=== PATIENT | female | born 1980 | race African-American/Black ===

== ENCOUNTER 2019-01-11 17:46 | Emergency (ER) | payer OTHER, SELFPAY ==
[2019-01-11] MEDS ORDERED: TETANUS & DIPHTHERIA TOX,ADULT 0.5 ML VIAL ONE (18:09)
--- NOTE | 2019-01-11 18:35 | RAD REPORT ---
EXAM DESCRIPTION: RAD - Ankle Left 3 View - 01/11/2019 6:21 pm CLINICAL HISTORY: DOG BITE COMPARISON: No comparisons FINDINGS: No fracture, dislocation or radiopaque foreign body is detected.
[2019-01-11] MEDS ORDERED: AMOX/K CLAV 875 MG TAB ONE (18:36)
--- NOTE | 2019-01-11 19:44 | EDPHYS ---
Physician Documentation [facility] Name: Karla Ross Age: 38 yrs Sex: Female : 1980 Arrival Date: 01/11/2019 Time: 17:51 Bed 20 Private MD: ED Physician Shai Bledsoe HPI: 01/11 18:06 This 38 yrs old Black Female presents to ER via Ambulatory with complaints of Dog Bite, rn Ankle Injury. 18:06 The patient was bitten on the right leg, by a dog, while in the garden or yard, rn outdoors. Onset: The symptoms/episode began/occurred just prior to arrival. Animal information: Animal's vaccinations are not up to date. The animal is known and can be quarantined, Animal control has been notified. Secondary to the bite the patient reports right leg with puncture wounds. Severity of symptoms: At their worst the symptoms were mild, in the emergency department the symptoms are unchanged. The patient has not experienced similar symptoms in the past. 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 Patient not UTD with tetanus. Reports jumped into truck and rolled left ankle, able to walk on it but hurts. No other injuries. . Historical: - Allergies: 17:57 No Known Allergies; la1 - PMHx: 17:57 Hypertension; la1 - Immunization history:: Adult Immunizations up to date. - Social history:: Smoking status: Patient/guardian denies using tobacco. - Ebola Screening: : No symptoms or risks identified at this time. - Family history:: not pertinent. - Hospitalizations: : No recent hospitalization is reported. ROS: 18:06 Constitutional: Negative for fever, chills, and weight loss, MS/Extremity: + bite rn wounds and left ankle injury Exam: 18:06 Constitutional: This is a well developed, well nourished patient who is awake, alert, rn and in no acute distress. Ambulatory to room without assistance or difficulty. MS/ Extremity: Pulses equal, no cyanosis. Neurovascular intact. Full, normal range of motion. Equal circumference. 2 separate bite torres, each with 2 small subcentimeter puncture wounds to RLE. one on distal anterior thigh and another [id number] space, no palpable foreign bodies, superficial, and mild venous bleeding. Left ankle without bony tenderness of fibula/tibia, mild tenderness just distal to ankle. Vital Signs: 17:57 BP 124 / 87; Pulse 86; Resp 16; Temp 97.4; Pulse Ox 100% on R/A; Weight 83.91 kg; la1 Height 5 ft. 5 in. (165.10 cm); 17:57 Body Mass Index 30.79 (83.91 kg, 165.10 cm) la1 MDM: 17:58 Patient medically screened. rn 18:25 Differential diagnosis: superficial dog bites, ankle sprain. Data reviewed: vital rn signs, nurses notes, radiologic studies, plain films, and as a result, I will discharge patient. Sepsis 6 hour Focused Exam:. Counseling: I had a detailed discussion with the patient and/or guardian regarding: the historical points, exam findings, and any diagnostic results supporting the discharge/admit diagnosis, radiology results, the need for outpatient follow up, to return to the emergency department if symptoms worsen or persist or if there are any questions or concerns that arise at home. Special discussion: I discussed with the patient/guardian in detail that at this point there is no indication for admission to the hospital. It is understood, however, that if the symptoms persist or worsen the patient needs to return immediately for re-evaluation. Based on the history and exam findings, there is no indication for further emergent testing or inpatient evaluation. I discussed with the patient/guardian the need to see the primary care provider for further evaluation of the symptoms. Animal control. ED course: Dogs are owned and animal control notified. No lacerations, + superficial dog bites that do not need to be closed at this time, cleaned with hibiclenz and dressed, tetanus updated. Xray left ankle negative for acute fracture/dislocation. Will dc home with return precautions. No emergent indication for rabies treatment given not stray dogs, both dogs attacked, and known location with animal control involved. . 01/11 18:06 Order name: Wound Care; Complete Time: 18:07 rn Administered Medications: 18:16 Drug: Tetanus-Diphtheria Toxoid Adult 0.5 ml {Client Success Manager: [employer]. Exp: sg 08/26/2020. Lot #: [id number]. } Route: IM; Site: right deltoid; 18:37 Drug: Augmentin 875 mg Route: PO; sg Disposition: 01/11/19 18:28 Discharged to Home. Impression: Sprain of unspecified ligament of left ankle, Bitten by dog. - Condition is Stable. - Discharge Instructions: Ankle Sprain, Animal Bite. - Prescriptions for Augmentin 875- 125 mg Oral Tablet - take 1 tablet by ORAL route every 12 hours for 10 days; 20 tablet. - Work release form, Medication Reconciliation Form, Thank You Letter, Antibiotic Education, Prescription Opioid Use form. - Follow up: Private Physician; When: As needed; Reason: Recheck today's complaints, Re-evaluation by your physician. - Problem is new. - Symptoms have improved. Signatures: Ronny Sterling RN RN sg Nieto, Roman, MD MD rn Attema, Lee, RN RN la1 Corrections: (The following items were deleted from the chart) 18:43 18:28 01/11/2019 18:28 Discharged to Home. Impression: Sprain of unspecified ligament sg of left ankle; Bitten by dog. Condition is Stable. Forms are Medication Reconciliation Form, Thank You Letter, Antibiotic Education, Prescription Opioid Use. Follow up: Private Physician; When: As needed; Reason: Recheck today's complaints, Re-evaluation by your physician. Problem is new. Symptoms have improved. rn
--- NOTE | 2019-01-11 19:46 | ER ---
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 Animal control were on scene and the dogs were not UTD on their vaccinations. Transition of care: patient was not received from another setting of care. Onset of symptoms was January 11, 2019. Risk Assessment: Do you want to hurt yourself or someone else? Patient reports no desire to harm self or others. Initial Sepsis Screen: Does the patient meet any 2 criteria? No. Patient's initial sepsis screen is negative. Does the patient have a suspected source of infection? No. Patient's initial sepsis screen is negative. Care prior to arrival: None. 17:56 Method Of Arrival: Ambulatory la1 17:56 Acuity: [place] 4 la1 Triage Assessment: 18:44 Bite description: bite by a dog, animal information: vaccination(s) is not up to date. sg Historical: - Allergies: 17:57 No Known Allergies; la1 - PMHx: 17:57 Hypertension; la1 - Immunization history:: Adult Immunizations up to date. - Social history:: Smoking status: Patient/guardian denies using tobacco. - Ebola Screening: : No symptoms or risks identified at this time. - Family history:: not pertinent. - Hospitalizations: : No recent hospitalization is reported. Screenin:00 Abuse screen: Denies threats or abuse. Denies injuries from another. Nutritional sg screening: No deficits noted. Tuberculosis screening: No symptoms or risk factors identified. Never had TB. Fall Risk None identified. Assessment: 18:06 Reassessment: Patient appears in no apparent distress at this time. wound care ordered. sg 18:06 General: Appears in no apparent distress. well groomed, well developed, well nourished, sg Behavior is calm, cooperative, appropriate for age. Pain: Complains of pain in right quadriceps, right hogan and left lateral ankle Quality of pain is described as aching. Neuro: Level of Consciousness is awake, alert, obeys commands, Oriented to person, place, time, situation, Exchange Underwriting Consultant are equal bilaterally Speech is normal, Facial symmetry appears normal. Cardiovascular: Capillary refill is brisk in bilateral fingers Patient's skin is warm and dry. Chest pain is denied. Respiratory: Airway is patent Respiratory effort is even, unlabored, Respiratory pattern is regular, symmetrical. GI: Abdomen is round non-distended, Reports normal bowel habits, tolerance of fluids, tolerance of food. : No signs and/or symptoms were reported regarding the genitourinary system. EENT: No signs and/or symptoms were reported regarding the EENT system. Derm: Skin is healthy with good turgor, Skin is dry, Skin is normal, Wound noted right quadriceps and right hogan. Musculoskeletal: Circulation, motion, and sensation intact. Range of motion: intact in all extremities. Injury Description: Bite sustained to right quadriceps and right hogan caused by a dog, is from animal, was sustained 30-60 minutes ago. 18:45 Reassessment: Patient appears in no apparent distress at this time. pt reports the sg lab animal technician has been notified as well as appropriate police department. Vital Signs: 17:57 BP 124 / 87; Pulse 86; Resp 16; Temp 97.4; Pulse Ox 100% on R/A; Weight 83.91 kg; la1 Height 5 ft. 5 in. (165.10 cm); 17:57 Body Mass Index 30.79 (83.91 kg, 165.10 cm) la1 ED Course: 17:51 Patient arrived in ED. mr 17:57 Triage completed. la1 17:57 Arm band placed on right wrist. la1 17:58 Shai Bledsoe MD is Attending Physician. rn 18:06 Ronny Sterling RN is Primary Nurse. sg 18:10 No provider procedures requiring assistance completed. Patient did not have IV access sg during this emergency room visit. Wound care: to puncture located on right quadriceps and right hogan was cleaned with Hibiclens, dressed with Neosporin, 4X4s, Kerlix, Patient tolerated well. 18:15 Patient has correct armband on for positive identification. Bed in low position. Call sg light in reach. Side rails up X2. Pulse ox on. NIBP on. 18:33 Dressings: Kerlix non-adherent dressing x 2 right leg. kj1 18:44 Alirio wrap to left ankle. sg Administered Medications: 18:16 Drug: Tetanus-Diphtheria Toxoid Adult 0.5 ml {Anesthesiologist: [employer]. Exp: [place] 08/26/2020. Lot #: [id number]. } Route: IM; Site: right deltoid; 18:37 Drug: Augmentin 875 mg Route: PO; sg Outcome: 18:28 Discharge ordered by . rn 18:40 Discharged to home ambulatory, with family. sg 18:40 Condition: good 18:40 Discharge instructions given to patient, Instructed on discharge instructions, follow up and referral plans. no drinking with medication, no driving heavy equipment, medication usage, safety practices, wound care, Demonstrated understanding of instructions, follow-up care, medications, wound care, Prescriptions given X 1. 18:43 Patient left the ED. sg Signatures: Ronny Sterling RN RN sg Rivera, Mary Shai Bledsoe MD MD rn Attema, Lee, RN RN [facility] Lydia Franklin
== END 2019-01-11 18:43 | disposition home or self-care (01) ==
LOC: ER 17:46
DX: S93.402A Sprain of unspecified ligament of left ankle, initial encounter (principal); W54.0XXA Bitten by dog, initial encounter; Y93.89 Activity, other specified; Y92.9 Unspecified place or not applicable; Z23 Encounter for immunization; I10 Essential (primary) hypertension
CPT/HCPCS: 90714